=== PATIENT | female | born 1950 | race Caucasian/White ===

== ENCOUNTER → 2016-11-01 | Outpatient (CLI) | payer MEDICARE, OTHER ==
[~2016-11-01] MED LIST: AMITRIPTYLINE100 MG PO; AMLODIPINE BESYL5 MG PO; ESTRADIOL0.5 MG PO; IMDUR-ER60 M1 PO; KLONOPIN0.5 M1 PO; MOBIC15 MG PO; MONTELUKAST SOD10 MG PO; OMEPRAZOLE20 M1 PO; OXYCODON-ACETA1 EAC1 PO; PAROXETINE HCL20 MG PO; SEROQUEL XR300 MG PO; TIROSINT50 MCG PO; TRIAMTERENE-HC1 EAC1 PO
--- NOTE | ~2016-11-01 | CO ---
Unit #: [id number] #: [id number] Patient: OLIVER SMITH [id number] [address] [address] [id number] O MR#: [id number] NAME: OLIVER SMITH ROOM: Age: 65 Sex: F Admission Date: 11/01/2016 : 1950 Attending Physician: Dane Dillon M.D. Primary Care Physician: Renetta Corbett Requesting Physician: Dane Dillon M.D. Consultation Date: 11/01/2016 CONSULTATION REPORT REASON FOR CONSULTATION Preoperative medical evaluation prior to revision left total knee arthroplasty scheduled by Dr. Dillon for 11/07/2016 HISTORY OF PRESENT ILLNESS The patient is a 65-year-old female who presents to preprocedural screening for the reasons indicated above. She reports left knee pain, as well as right hip and chronic low back pain at the time of this interview. She denies current or recent upper chest, upper back, arm, neck, jaw pain or pressure. Denies shortness of air although her activity is somewhat limited secondary to lower extremity and low back pain. Denies paroxysmal nocturnal dyspnea. Denies history of sleep apnea. She denies lightheadedness, dizziness, presyncope or syncope. She denies history of myocardial infarction but has a history of congestive heart failure but does not recall circumstances surrounding this event, as she states she has short-term memory loss. She is not aware of the history of a cardiac murmur. She denies history of CVA, TIA. Denies history of diabetes or kidney disease. She has been evaluated by Dr. Dillon and scheduled for the above referenced procedure. PAST MEDICAL HISTORY 1. Osteoarthritis. 2. COPD. 3. Congestive heart failure. 4. Hypertension. 5. Urinary stress incontinence. 6. Depression/anxiety. 7. Hypothyroidism. 8. Left thyroid mass without workup. 9. Degenerative disc disease. 10. Spinal stenosis and bulging discs. 11. Chronic low back pain, recently established with pain management; however, she states her pain management physician is leaving. 12. Short term memory loss. PAST SURGICAL HISTORY 1. Bilateral knee arthroplasty. 2. Colon surgery for bowel obstruction. 3. Hysterectomy. Please note, the patient denies a personal and family history of complications to anesthesia. ALLERGIES Unit #: [id number] #: [id number] Patient: OLIVER SMITH Denies latex allergy. Reports allergy to sulfa causes her to breakout and Pregabalin causes edema. CURRENT MEDICATIONS Patient does not have the list of her current medications today. She is to provide us with a list. We will also contact her pharmacy, [facility] in [place], [place], at to obtain a list of her current medications. SOCIAL HISTORY Denies ETOH use and illicit drug use. Reports smoking 1/2 pack of cigarettes daily for the past 50 years. Her is , she has no children and she lives alone. REVIEW OF SYSTEMS Left thyroid nodule nontender without dysphagia for many years without workup, although recommended. Easy bruising of thin skin. A 10 point review of systems is conducted and otherwise negative except as indicated under history of present illness. PHYSICAL EXAMINATION GENERAL: 65-year-old female, awake, alert, in no acute distress. VITAL SIGNS: Temperature 97, heart rate 72, respiratory rate 16, blood pressure 123/79, oxygen saturation 97% on room air. HEENT: Atraumatic and normocephalic. PERRLA. No discharge from eyes, ears, or nares. LYMPHS: No preauricular, post auricular, tonsillar, submental, anterior or posterior cervical adenopathy. ENDOCRINE: No thyromegaly, tenderness left lobe nodule, immobile, nontender. LUNGS: Clear to auscultation in all muñoz bilaterally without wheezes, rhonchi or rales. CARDIOVASCULAR: S1 and S2 regular rate and rhythm with grade 2/6 systolic murmur best heard at Erb's point. No carotid bruits. GI: Bowel sounds positive x4. Soft, nontender, nondistended. EXTREMITIES: 2+ nonpitting left lower extremity edema. No right lower extremity edema. No cyanosis or clubbing. MUSCULOSKELETAL: Strength 5/5 all extremities bilaterally. Flexion, extension, and dissection of left lower extremity, which is limited secondary to knee pain. NEUROLOGIC: Alert and oriented x3. Speech clear. Follows directions for examination and diagnostic studies. DIAGNOSTIC STUDIES LABORATORY DATA: WBC 13.0, hemiglobin 13.9, hematocrit 40.3, platelets 352,000. Sedimentation rate 14. Sodium 132, potassium 3.8, chloride 100, CO2 24, glucose 116, BUN 8, creatinine 0.7, calcium 9.5, AST 16, ALT 21, alk phos 106, bili total 0.3, total protein 6.8, albumin 4.1. Urinalysis negative with neither microscopic nor culture indicated. PT 9.9, INR 0.9. Blood type 0 positive. Antibody screen negative. MRSA nasal swab report pending at this time. IMAGING STUDIES: Two view chest x-ray report pending at this time. CARDIOLOGY STUDIES: Twelve lead EKG - normal sinus rhythm, possible left atrial enlargement, LVH, abnormal ECG, confirmed report pending at this time. Unit #: [id number] #: [id number] Patient: OLIVER SMITH IMPRESSION The patient is a 65-year-old female who presents to preprocedural screening for: 1. Preoperative medical evaluation prior to revision left total knee arthroplasty. Patient's Thornton revised cardiac risk index is equal to 1.0% to 2.4% given history of congestive heart failure. Circumstances in this regard are absent. This represents the patient's approximate perioperative risk of fatal or nonfatal myocardial infarction, cardiopulmonary arrest, arrhythmia and/or pulmonary edema. This has been discussed in detail with her and she wishes to proceed with surgery as scheduled at this time. Given history of congestive heart failure I have recommended preoperative cardiac clearance. She has been given a note to take to her primary care physician for referral to obtain this preoperative cardiac clearance. She has verbalized understanding and is in agreement with this plan. 2. COPD, stable. Will add inhaled bronchodilators and/or mucolytics postoperatively if indicated. Will titrate O2 to keep O2 sats greater than or equal to 92%. 3. History of congestive heart failure. Patient is going to provide us with a list of her medications and we are going to confirm these with her pharmacy in [place] as well. Will adjust based on cardiologists recommendations at the time of clearance. 4. Hypertension. Blood pressure is stable. Again would monitor and adjust medications accordingly. 5. History of urinary stress incontinence. Will monitor for postop urinary retention. 6. Depression and anxiety. Patient states that she is out of her medication. She is to follow up with her primary care physician for refills. 7. Hypothyroidism. Check TSH and free T4 of blood in lab today. Will adjust medication dose if indicated based on information obtained by the patient's pharmacy. 8. History of degenerative disc disease, spinal stenosis and bulging disc. Patient states that her pain medication physician recently left the practice. She will have to find another pain management physician. 9. Short-term memory loss. 10. Left thyroid nodule. Again patient is advised to obtain an appointment with her primary care physician for further evaluation and management of left thyroid nodule. She is asymptomatic today. TSH and free T4 are pending at this time. 11. Cardiac murmur. Patient is not sure if she has had a workup before. Again preop cardiac clearance is pending. 12. Tobacco use. Cessation will be recommended. Will provide nicotine transdermally postoperatively if needed for nicotine withdrawal. 13. Leukocytosis unknown etiology. Await two view chest x-ray. I have ordered a CBC in the AV of OR to confirm this result. Thank you for allowing us to participate in the are of this patient. It is recommended that the patient be evaluate by her primary care physician regarding further workup of the left thyroid nodule. Patient has been advised to obtain preoperative cardiac clearance before the elective left total knee revision procedure. Dictated by... Radha MchughP.RJessicaNJessica for Unit #: [id number] #: [id number] Patient: OLIVER SMITH Brock Meneses/rigoberto TD: 11/02/2016 09:10 JOB #: [id number] CONSULTATION REPORT Page 1 of 1 X Denisa Lawton APRN X CONSULTATION REPORT
--- NOTE | ~2016-11-01 | EKG ---
PATIENT: OLIVER SMITH UNIT #: [id number] Ventricular Rate: 69 BPM Atrial Rate: 69 BPM P-R Interval: 166 ms QRS Duration: 90 ms Q-T Interval: 388 ms QTC Calculation(Bezet): 415 ms P [place]: 50 degrees Calculated R [place]: -23 degrees Calculated T [place]: 61 degrees Diagnosis Line: Normal sinus rhythm Diagnosis Line: Possible Left atrial enlargement Diagnosis Line: Voltage criteria for left ventricular hypertrophy Diagnosis Line: Borderline ECG Diagnosis Line: No previous ECGs available Diagnosis Line: Confirmed by JR FLORES MD ([id number]) on 11/02/2016 Diagnosis Line: 7:37:43 PM INTERPRETING MD: SANDRA HOOD
--- NOTE | ~2016-11-01 | CR63 ---
[facility] A Service of [facility] & [facility] RADIOLOGY TEXT RESULTS PATIENT: OLIVER SMITH LOCATION: [facility] : [birth year] UNIT #: [id number] AGE: [address]: Dane Dillon MD SEX: F ORDER DR: [id number] [facility] [address] [place], [place] [address] [id number] O MR#: [id number] Acc #: [id number] NAME: OLIVER SMITH : 1950 SEX: F STUDY DATE/TIME: 11/01/2016 14:17 UNIT: [facility] ROOM: STUDY DESCRIPTION: CR Chest 2 View Attending Physician: Dane Dillon M.D. Referring Physician: Dane Dillon M.D. Ordering Physician: Dane Dillon M.D. Primary Care Physician: Renetta Corbett MEDICAL IMAGING REPORT This report is preliminary unless electronic signature is present EXAM Chest 11/01/2016, [facility]. HISTORY 65-year-old woman, preop revision left total knee replacement. Failed components. COMPARISON Comparison none. FINDINGS PA and lateral chest views show borderline cardiac enlargement. Hilar structures and mediastinal contours are preserved. Bilateral lungs are expanded and clear. Mild elevation left hemidiaphragm noted. IMPRESSION Borderline cardiac enlargement. No acute chest finding. Dictated by... Anthony Armijo M.D. THIS IS AN ELECTRONICALLY VERIFIED REPORT Anthony Armijo M.D. at 11/02/2016 8:08 AM JAVIER/dionicio TD: 11/01/2016 16:22 JOB #: [id number] MEDICAL IMAGING REPORT Page 1 of 1 COPY
[2016-11-01 14:00] LABS: HEMATOCRIT 40.3 % (35.0-45.0); HEMOGLOBIN 13.9 gm/dL (12.0-16.0); MEAN CELL VOLUME 98.1 FL (83-96); MEAN CORPUSCULAR HEMOGLOBIN 33.8 PG (28-34); MEAN CORPUSCULAR HGB CONC 34.5 g/dL (30-36); MEAN PLATELET VOLUME 7.4 FL (6.5-11.5); RED BLOOD COUNT 4.11 X10e (3.90-5.30); RED CELL DISTRIBUTION WIDTH 14.8 % (11.0-15.5)
[2016-11-01 14:14] LABS: INR 0.9; PROTHROMBIN TIME (PATIENT) 9.9 SECONDS (10.0-11.7)
[2016-11-01 14:17] LABS: URINE APPEARANCE CLEAR; URINE BILIRUBIN NEG (NEG); URINE BLOOD NEG (NEG); URINE COLOR YELLOW; URINE GLUCOSE NEG (NEG); URINE KETONE NEG (NEG); URINE LEUKOCYTE ESTERASE NEG (NEG); URINE NITRATE NEG (NEG); URINE PH 6.5 (5-8); URINE PROTEIN NEG (NEG); URINE SPECIFIC GRAVITY 1.025 (1.003-1.035)
[2016-11-01 14:26] LABS: ALBUMIN SERUM 4.1 g/dL (3.5-5.0); BILIRUBIN,TOTAL 0.3 mg/dL (0.2-2.0); BUN/CREATININE RATIO 11.42; CALCIUM SERUM 9.5 mg/dL (8.4-10.2); CREATININE SERUM 0.7 mg/dL (0.6-1.4); GLOM FILT RATE Estimated 91.6 mL/min (>60); POTASSIUM 3.8 mmol/L (3.5-5.1); PROTEIN TOTAL SERUM 6.8 g/dL (6.0-8.3)
[2016-11-01 14:31] LABS: CULTURE INDICATED? NO
[2016-11-01 16:18] LABS: THYROID STIMULATING HORMONE 0.91 uIU/ml (0.34-5.60)
[2016-11-01 16:25] LABS: FREE THYROXIN (T4) 0.91 ng/dL (0.58-1.64)
== END | disposition home or self-care (01) ==
LOC: CAMB 12:56
PROVIDERS: Orthopaedic Surgery
DX: Z01.818 Encounter for other preprocedural examination (principal); T84.093A Other mechanical complication of internal left knee prosthesis, initial encounter; I10 Essential (primary) hypertension; F32.9 Major depressive disorder, single episode, unspecified
CPT/HCPCS: 36415; 71020; 80053; 81003; 84439; 84443; 85027; 85610; 85652; 86140; 86850; 86900; 86901; 87070; 93005

== ENCOUNTER 2016-11-07 09:51 | Inpatient (IN) | payer MEDICARE, OTHER ==
[~2016-11-07] VITALS: Ht 154.9 cm; Wt 67.0 kg
--- NOTE | ~2016-11-07 | OR ---
Unit #: [id number] #: [id number] Patient: OLIVER SMITH [id number] [address] [place], [place] [address] [id number] I MR#: [id number] NAME: OLIVER SMITH ROOM: 452 Date of Procedure: 11/07/2016 Admission Date: 11/07/2016 Surgeon: Dane Dillon M.D. : 1950 Attending Physician: Dane Dillon M.D. Primary Care Physician: Dane Dillon M.D. OPERATIVE REPORT PREOPERATIVE DIAGNOSIS Loosening left tibial component. POSTOPERATIVE DIAGNOSIS Loosening left tibial component. PROCEDURE PERFORMED Revision of left total knee. ASSISTANTS Angélica and Landen. ANESTHESIA Adductor canal block plus general. ESTIMATED BLOOD LOSS 200 mL. DESCRIPTION OF PROCEDURE The patient was brought to the holding room, given 1 g Ancef. She will be given 2 doses postoperatively and then discontinued. She was then given an adductor canal block. She was brought back to the operating room, given a general anesthetic. Tourniquet placed around the left thigh. The left leg was prepped and draped in a sterile fashion. Tourniquet inflated to 250. A straight anterior skin incision was made. The subcutaneous dissected away and a medial arthrotomy was performed. Patella was slid to the side. Osteophytes removed from the femur. The tibial tray then had the polyethylene removed. It was grossly loose and had collapsed into varus. The femoral component was removed using 1/2-inch curved osteotome. This came off fairly easily. The patient then had the tibia subluxed anteriorly and were able to lift the tibial tray out of the tibia and then removed any remaining cement. We then reamed the tibia up to a 14. The conical reamer was used for the MBT sleeve and then the broaches were used for the MBT sleeve up to a 29. The tibia was sized at a 2. After this was done, the femoral canal was reamed up to a 14. We used a conical reamer for the [place] femoral sleeve and then broaches were used for the [place] femoral sleeve up to a size 40. The femur was sized at a 3. We then made the box cut and chamfer cuts for a posterior stabilized and then the trial was assembled. Trial reduction was carried out with a 10 insert, which was the thinnest insert and the knee came to full extension, although, it was a little bit tight and it was quite stable in extension and flexion. The patellar component was inspected and it was found not to Unit #: [id number] #: [id number] Patient: OLIVER SMITH be loose. We then removed all the trials. The real components were opened. Two packages of cement were mixed and the tibia was impacted first cementing under the tray only, but filling the medial defect with cement. After this was done, the femoral component was inserted cementing underneath the femoral component not the sleeve or stem. Once the cement was hardened, the 10 mm RP insert was opened and applied to the tibia. The knee had an excellent range of motion from 0 to 115 and the patella tracked appropriately. The tourniquet had been released earlier. The rest of the ropivacaine mixture was injected. The knee was irrigated with a dilute Betadine solution and then bacitracin and then closed using 0 Ethibond in the arthrotomy, 0 and 2-0 Vicryl in the subcutaneous, and dmitri in the skin. Dictated by... Brock Wallis/mary TD: 11/07/2016 19:20 JOB #: [id number] OPERATIVE REPORT Page 1 of 1 X Dane Dillon MD X PROCEDURE OPERATIVE NOTE
--- NOTE | ~2016-11-07 | DS ---
Unit #: [id number] #: [id number] Patient: OLIVER SMITH [id number] [facility] [address]. [place], [place] [address] [id number] I MR#: [id number] NAME: OLIVER SMITH ROOM: 45 Age: 65 Sex: F Admission Date: 11/07/2016 : 1950 Discharge Date: 11/09/2016 Attending Physician: Dane Dillon M.D. Primary Care Physician: Dane Dillon M.D. DISCHARGE SUMMARY REASON FOR ADMISSION Left knee pain with loosening of the prosthesis. PROCEDURES Revision left total knee. ADMITTING PHYSICIAN Dr. Dane Dillon. CONSULTING PHYSICIAN HIPS for medical management. HOSPITAL COURSE The patient was admitted to [facility] with a history of severe pain in her left knee. Patient did have a loose prosthesis, especially the tibia component. The patient had underwent a revision of her left total knee replacement and has done fine. Today the patient's temperature is 98.4, blood pressure 120/64, heart rate is 87 and regular, respirations 18. Her incision is healing well and neurovascular exam was intact. She had 2+ pulses in her lower extremity. Plan ill be to send her to rehab later today. DISPOSITION Lety Abdullahi for rehab. PERTINENT LABS PT was 35.2, INR is 3.2. Hemoglobin is 10.9. MEDICATIONS Per med rec list. She will be on her regular home medications. With the addition of Coumadin, which we are holding today and Percocet 10, take 1/2 to 1 q.4-6 p.r.n. pain. FOLLOW UP INSTRUCTIONS The patient will be transferred to rehab. Patient will need PT/INR on 11/10/2016, 11/11/2016 and then every Monday and thereafter, call the office at or fax to Apr at . The patient will need skin dmitri removed two weeks postoperatively with Steri-Strips placed for one week. Patient should wear RYANN hose during the day, off at night. The patient should not shower until the day after dmitri removed. Patient will begin physical therapy including active-active assist range of motion and strengthening, progressive ambulation. Again with a walker, and progress to cane as tolerated. Unit #: [id number] #: [id number] Patient: OLIVER SMITH Dictated by.Bree Lindsay P.A.-C- for Dane Dillon M.D. KF/ts TD: 11/09/2016 08:55 JOB #: [id number] DISCHARGE SUMMARY Page 1 of 1 X X DISCHARGE SUMMARY
[2016-11-07 12:13] LABS: HEMATOCRIT 38.1 % (35.0-45.0); HEMOGLOBIN 13.2 gm/dL (12.0-16.0); MEAN CELL VOLUME 98.3 FL (83-96); MEAN CORPUSCULAR HEMOGLOBIN 34.2 PG (28-34); MEAN CORPUSCULAR HGB CONC 34.7 g/dL (30-36); MEAN PLATELET VOLUME 7.4 FL (6.5-11.5); RED BLOOD COUNT 3.87 X10e (3.90-5.30); RED CELL DISTRIBUTION WIDTH 14.8 % (11.0-15.5); WHITE BLOOD COUNT 11.7 X10e3 (4.0-10.5)
[2016-11-07 12:27] LABS: INR 1.1; PROTHROMBIN TIME (PATIENT) 11.6 SECONDS (10.0-11.7)
[2016-11-08 03:42] LABS: HEMATOCRIT 32.9 % (35.0-45.0)
[2016-11-08 03:51] LABS: HEMOGLOBIN 11.2 gm/dL (12.0-16.0)
[2016-11-08 04:00] LABS: INR 1.7
[2016-11-08 04:01] LABS: PROTHROMBIN TIME (PATIENT) 18.2 SECONDS (10.0-11.7)
[2016-11-08 04:02] LABS: BUN/CREATININE RATIO 8.57; CALCIUM SERUM 8.3 mg/dL (8.4-10.2); CREATININE SERUM 0.7 mg/dL (0.6-1.4); GLOM FILT RATE Estimated 91.6 mL/min (>60); POTASSIUM 3.3 mmol/L (3.5-5.1)
[2016-11-09 03:09] LABS: HEMATOCRIT 32.3 % (35.0-45.0); HEMOGLOBIN 10.9 gm/dL (12.0-16.0)
[2016-11-09 03:24] LABS: INR 3.2
[2016-11-09 03:30] LABS: PROTHROMBIN TIME (PATIENT) 35.2 SECONDS (10.0-11.7)
[2016-11-09 03:46] LABS: BUN/CREATININE RATIO 11.66; CALCIUM SERUM 8.8 mg/dL (8.4-10.2); CREATININE SERUM 0.6 mg/dL (0.6-1.4); GLOM FILT RATE Estimated 96.3 mL/min (>60); MAGNESIUM 1.7 mg/dL (1.6-3.0); POTASSIUM 3.1 mmol/L (3.5-5.1)
[2016-11-09 21:16] LABS: BUN/CREATININE RATIO 13.33; CALCIUM SERUM 8.7 mg/dL (8.4-10.2); CREATININE SERUM 0.6 mg/dL (0.6-1.4); GLOM FILT RATE Estimated 96.3 mL/min (>60); POTASSIUM 3.7 mmol/L (3.5-5.1)
[2016-11-10 04:29] LABS: INR 2.3; PROTHROMBIN TIME (PATIENT) 25.4 SECONDS (10.0-11.7)
[2016-11-10 04:36] LABS: CALCIUM SERUM 8.5 mg/dL (8.4-10.2); CREATININE SERUM 0.5 mg/dL (0.6-1.4); GLOM FILT RATE Estimated 102.3 mL/min (>60); MAGNESIUM 1.9 mg/dL (1.6-3.0); POTASSIUM 3.9 mmol/L (3.5-5.1)
== END 2016-11-10 12:59 | DRG 467 ==
LOC: CSUR 09:51 → CPACUOF 12:00 → CSUR 12:00 → CPACUOF 15:49 → C4B 17:08
PROVIDERS: Internal Medicine; Nurse Practitioner; Orthopaedic Surgery
PROC: 0SRD0J9 Replacement of Left Knee Joint with Synthetic Substitute, Cemented, Open Approach (ICD-10-PCS; 2016-11-07)
PROC: 0SPD09Z Removal of Liner from Left Knee Joint, Open Approach (ICD-10-PCS; 2016-11-07)
PROC: 0SUW09Z Supplement Left Knee Joint, Tibial Surface with Liner, Open Approach (ICD-10-PCS; 2016-11-07)
PROC: 0SPD0JZ Removal of Synthetic Substitute from Left Knee Joint, Open Approach (ICD-10-PCS; principal; 2016-11-07 12:00)
DX: T84.033A Mechanical loosening of internal left knee prosthetic joint, initial encounter (principal); D62 Acute posthemorrhagic anemia; I50.9 Heart failure, unspecified; F32.9 Major depressive disorder, single episode, unspecified; F41.9 Anxiety disorder, unspecified; Z88.2 Allergy status to sulfonamides; E03.9 Hypothyroidism, unspecified; M54.5 Low back pain; J44.9 Chronic obstructive pulmonary disease, unspecified; F17.210 Nicotine dependence, cigarettes, uncomplicated; Z90.710 Acquired absence of both cervix and uterus; Z96.651 Presence of right artificial knee joint; F17.200 Nicotine dependence, unspecified, uncomplicated; G89.4 Chronic pain syndrome; I10 Essential (primary) hypertension; R01.1 Cardiac murmur, unspecified; N39.3 Stress incontinence (female) (male); K21.9 Gastro-esophageal reflux disease without esophagitis; R73.9 Hyperglycemia, unspecified; T38.0X5A Adverse effect of glucocorticoids and synthetic analogues, initial encounter; E87.6 Hypokalemia; E83.42 Hypomagnesemia
CPT/HCPCS: 80048; 83735; 84295; 85014; 85018; 85027; 85610; 87070; 87075; 87205; 94010; 94760; 97110; 97116; 97161; 97166; 97530; 97535; C1713; C1776; G8978-GP; G8979-GP; G8980-GP; G8987-GO; G8988-GO; J0171; J0690; J0735; J1100; J1170; J1650; J1885; J2175; J2250; J2270; J2405; J2795; J3010; J3475

== ENCOUNTER 2016-12-11 18:25 | Inpatient (IN) | payer MEDICARE, OTHER ==
[~2016-12-11] VITALS: Ht 165.1 cm; Wt 67.0 kg
--- NOTE | ~2016-12-11 | DS ---
Unit #: [id number] #: [id number] Patient: OLIVER SMITH [id number] [address] [address] [id number] I MR#: [id number] NAME: OLIVER SMITH ROOM: 47 Age: 66 Sex: F Admission Date: 12/11/2016 : 1950 Discharge Date: 12/14/2016 Attending Physician: Dane Dillon M.D. Primary Care Physician: Dane Dillon M.D. DISCHARGE SUMMARY ADMITTING PHYSICIAN Dr. Parker. ADMITTING DIAGNOSIS Left tibial plateau fracture. HOSPITAL COURSE Ms. Smith was admitted on December 11, 2016, for a left medial tibial plateau fracture. She underwent physical therapy, anticoagulation therapy, and medical management. She is doing well and is ready to be discharged. She does have weightbearing restrictions and range of motion restrictions and so she is unable to go home with home health at this time. She recently had a left total knee revision done by Dr. Dillon on November 07, 2016. She is current with [facility] but as I said before, she is unable to go home due to her weightbearing and range of motion restrictions. DISCHARGE MEDICATIONS Medications on discharge include her routine home meds. FOLLOWUP AND INSTRUCTIONS Ms. Smith is going to be discharged to [facility] when a bed becomes available. Followup with Dr. Dillon in 10 days to two weeks for an x-ray. Patient will be on aspirin 325 mg p.o. b.i.d. until followup with Dr. Dillon. Patient is limited to toe touch weightbearing and range of motion should be limited to 0-90 degrees of flexion. A knee immobilizer should be intact at all times except for hygiene care and when working on range of motion. Followup is with Dr. Dillon is in 10 days to two weeks. Please call our office for that appointment date and time. Dictated by... Huy Fontenot/brennen TD: 12/14/2016 14:00 JOB #: [id number] Unit #: [id number] #: [id number] Patient: OLIVER SMITHDOWS DISCHARGE SUMMARY Page 1 of 1 X May Gorodn X DISCHARGE SUMMARY
--- NOTE | ~2016-12-11 | HP ---
Unit #: [id number] #: [id number] Patient: OLIVER SMITH [id number] [address] [address] [id number] I MR#: [id number] NAME: OLIVER SMITH ROOM: 47 Age: 66 Sex: F Admission Date: 12/11/2016 : 1950 Attending Physician: Dane Dillon M.D. Primary Care Physician: Dane Dillon M.D. HISTORY AND PHYSICAL ADMITTING PHYSICIAN Dr. Parker. ADMITTING DIAGNOSIS Left total knee fracture. HISTORY OF PRESENT ILLNESS Ms. Smith is a 66-year-old female, who presents today with a tibial plateau fracture. Patient had a left total knee revision on November 07, 2016, by Dr. Dillon. She has been in physical therapy at her rehab facility. She reports that over the weekend her knee gave out on her twice and she fell. She is unable to ambulate without discomfort and reports a lot of instability in the knee. Patient reports that her pain is nonlocalized. Her pain is controlled with her pain medication that she is currently on. There is no numbness but positive weakness and instability due to pain. Patient is currently in a knee immobilizer and this offers support. PAST MEDICAL HISTORY 1. Osteoarthritis. 2. COPD. 3. Congestive heart failure. 4. Hypertension. 5. Urinary stress incontinence. 6. Depression/anxiety. 7. Hypothyroidism. 8. Left thyroid mass. 9. Spinal stenosis. 10. Chronic low-back pain. MEDICATIONS 1. Isosorbide. 2. Norvasc. 3. Singulair. 4. Paxil. 5. Klonopin. 6. Seroquel. 7. Levothyroxine. 8. Elavil. 9. Estradiol. ALLERGIES Augmentin, Levaquin, Lyrica, and sulfa. Unit #: [id number] #: [id number] Patient: OLIVER SMITH FAMILY HISTORY Insignificant. PAST SURGICAL HISTORY 1. Bilateral total knee arthroplasty. 2. Left total knee revision. 3. Colon surgery. 4. Hysterectomy. SOCIAL HISTORY Patient reports she smokes half pack a cigarettes a day. She denies any alcohol or illicit drug use. REVIEW OF SYSTEMS Ten organ systems reviewed. Patient denies any blurry vision, congestion, sore throat, shortness of breath, chest pain, abdominal pain, urinary incontinence, numbness, tingling, skin ulcers or lesion, anxiety, depression. Positive for joint pain. PHYSICAL EXAMINATION GENERAL: No acute distress. Alert and oriented x3. VITALS: Temperature 98.3, pulse 79, respirations 18, blood pressure 110/57. HEENT: PERRLA. Nonicteric sclerae. THORAX: Trachea midline. No lymphadenopathy. CARDIAC: S1, S2. No extra sounds. No murmurs. LUNGS: Clear to auscultation. No rales or rhonchi. ABDOMEN: Nondistended, nontender. Positive bowel sounds. GENITOURINARY: Deferred. MUSCULOSKELETAL: Positive joint effusion. Patient is unable to do a straight leg raise. Slight defect palpated at the quad tendon. NEUROLOGIC: II-XII intact. SKIN: Cool and dry. PSYCHIATRIC: Good insight. Good judgment. Mood and affect are pleasant. DIAGNOSTIC STUDIES IMAGING: A CT scan was reviewed from [facility] on December 11, 2016 and shows a comminuted nondisplaced fracture at the medial tibial plateau and posterolateral tibial plateau. Moderate joint effusion, likely hemarthrosis. ASSESSMENT Medial tibial plateau fracture, left total knee revision. PLAN I discussed treatment options with the patient. I would like Dr. Parker and Dr. Villeda who are currently covering for Dr. Dillon to review the CT scan, specially looking at the quad tendon. I would like to get a plain film, AP and lateral views of the left knee to evaluate the medial tibial plateau fracture. At this point, it looks like that fracture is nonoperative and should be treated in the knee immobilizer; however, we will have the CT scan and the x-rays evaluated. I am concerned about her quad tendon. We will have this reviewed. Patient can have a regular diet today. Will hold any physical therapy. Will offer an ice pack as needed today as well as pain medication. If surgery is warranted for the quad tendon, this will be done either Monday or Monday. Unit #: [id number] #: [id number] Patient: OLIVER SMITH Dictated by Huy Fontenot/brennen TD: 12/12/2016 09:40 JOB #: [id number] HISTORY AND PHYSICAL Page 1 of 1 X May Gordon HISTORY AND PHYSICAL
--- NOTE | ~2016-12-11 | CR169 ---
[facility] A Service of [facility] & [facility] RADIOLOGY TEXT RESULTS PATIENT: OLIVER SMITH LOCATION: [place] [address]01 : [birth year] UNIT #: [id number] AGE: [address]: Dane Dillon MD SEX: F ORDER DR: [id number] [facility] [address] [place], [place] [address] [id number] I MR#: [id number] Acc #: [id number] NAME: OLIVER SMITH : 1950 SEX: F STUDY DATE/TIME: 12/12/2016 12:30 UNIT: [facility] ROOM: [facility] STUDY DESCRIPTION: CR Knee 2 Views Lt Attending Physician: Dane Dillon M.D. Ordering Physician: Ed Doctor [id number] [facility] Primary Care Physician: Dane Dillon M.D. MEDICAL IMAGING REPORT This report is preliminary unless electronic signature is present EXAM Left knee 2 views 12/12/2016 1230 hours HISTORY Patient fell on 12/10/2016 and 12/11/2016, revision of right knee replacement performed 4 weeks ago. COMPARISON None available. FINDINGS AP, lateral views of the right knee are performed with a posterior splint present. Patient has had knee replacement with long stem femoral and tibial components in anatomic alignment. No acute fracture is seen. IMPRESSION Postop knee replacement with long stem femoral and tibial components in anatomic alignment. A posterior splint is present. There is no fracture seen. Dictated by... Mira Medina M.D. THIS IS AN ELECTRONICALLY VERIFIED REPORT Mira Medina M.D. at 12/13/2016 9:26 AM ISAURA/sunny TD: 12/13/2016 06:46 JOB #: [id number] MEDICAL IMAGING REPORT Page 1 of 1 COPY
[2016-12-12 03:22] LABS: BASOPHIL# 0.1 X10e3 (0-0.3); BASOPHIL% 0.6 % (0-2.5); EOSINOPHIL# 0.3 X10e3 (0-0.7); HEMATOCRIT 34.8 % (35.0-45.0); HEMOGLOBIN 11.8 gm/dL (12.0-16.0); LYMPHOCYTE# 2.8 X10e3 (1.0-3.5); LYMPHOCYTE% 28.3 % (17.0-45.0); MEAN CELL VOLUME 99.7 FL (83-96); MEAN CORPUSCULAR HEMOGLOBIN 33.9 PG (28-34); MEAN PLATELET VOLUME 7.2 FL (6.5-11.5); MONOCYTE# 0.8 X10e3 (0-1.0); NEUTROPHIL% 60.1 % (40-75); PLATELET COUNT 280 X10e3 (140-420); RED BLOOD COUNT 3.49 X10e (3.90-5.30); RED CELL DISTRIBUTION WIDTH 16.6 % (11.0-15.5)
[2016-12-12 03:26] LABS: DIFF IND NO
[2016-12-12 03:38] LABS: PROTHROMBIN TIME (PATIENT) 11.1 SECONDS (10.0-11.7)
[2016-12-12 03:54] LABS: BUN/CREATININE RATIO 18.57; CALCIUM SERUM 8.4 mg/dL (8.4-10.2); CREATININE SERUM 0.7 mg/dL (0.6-1.4); GLOM FILT RATE Estimated 90.9 mL/min (>60); POTASSIUM 3.8 mmol/L (3.5-5.1)
== END 2016-12-14 15:00 | DRG 563 ==
LOC: CEDOF 18:25 → C4C 18:25 → CEDOF 18:45 → C4C 18:45
PROVIDERS: Orthopaedic Surgery
DX: S82.142A Displaced bicondylar fracture of left tibia, initial encounter for closed fracture (principal); I11.0 Hypertensive heart disease with heart failure; I50.9 Heart failure, unspecified; J44.9 Chronic obstructive pulmonary disease, unspecified; W19.XXXA Unspecified fall, initial encounter; Z96.653 Presence of artificial knee joint, bilateral; E03.9 Hypothyroidism, unspecified; F32.9 Major depressive disorder, single episode, unspecified; F41.9 Anxiety disorder, unspecified; F17.210 Nicotine dependence, cigarettes, uncomplicated; Z90.710 Acquired absence of both cervix and uterus; Z88.2 Allergy status to sulfonamides; Z88.1 Allergy status to other antibiotic agents
CPT/HCPCS: 73560; 80048; 85025; 85610; 97110; 97116; 97161; 97530; G8978-GP; G8979-GP; J1170